=== PATIENT | female | born 1975 | race Caucasian/White ===

== ENCOUNTER 2023-07-29 17:32 | Emergency (ER) | payer OTHER ==
[2023-07-29 18:03] VITALS: O2SAT 98
[2023-07-29 18:20] LABS: BASOPHILS % (AUTO) 0.5 %; EOSINOPHILS # (AUTO) 0.2 10^3/uL (0.0-0.7); EOSINOPHILS % (AUTO) 2.6 %; HGB - HEMOGLOBIN 12.3 g/dL (12.0-16.0); LYMPHOCYTES # (AUTO) 2.5 10^3/uL (1.5-3.5); LYMPHOCYTES % (AUTO) 32.3 %; MEAN CORPUSCULAR HGB CONC 33.2 g/dL (32.0-36.0); MEAN CORPUSCULAR VOLUME 90.2 fL (81.0-99.0); MEAN PLATELET VOLUME 7.9 fL (7.9-10.8); MONOCYTES # (AUTO) 0.5 10^3/uL (0.0-1.0); MONOCYTES % (AUTO) 5.9 %; NEUTROPHILS # (AUTO) 4.6 10^3/uL (1.5-6.6); NEUTROPHILS % (AUTO) 58.4 %; PLT - PLATELET COUNT 408 10^3/uL (130-450); WHITE BLOOD COUNT 7.8 x10^3/uL (4.8-10.8)
[2023-07-29 18:21] LABS: BILIRUBIN,URINE NEGATIVE (NEGATIVE); GLUCOSE, URINE (UA) NEGATIVE (NEGATIVE); KETONES,URINE (UA) NEGATIVE (NEGATIVE); LEUKOCYTE ESTERASE, URINE NEGATIVE (NEGATIVE); NITRITE,URINE NEGATIVE (NEGATIVE); OCCULT BLOOD,URINE NEGATIVE (NEGATIVE); PROTEIN,URINE NEGATIVE (NEGATIVE); UROBILINOGEN,URINE 0.2 (NORMAL) E.U./dL (NORMAL)
[2023-07-29 18:24] LABS: CLARITY,URINE CLEAR (CLEAR); HCG UR QUAL NEGATIVE
[2023-07-29 18:33] LABS: ALBUMIN 4.4 g/dL (3.2-5.5); ALBUMIN/GLOBULIN RATIO 1.2 (1.0-2.2); BILIRUBIN,TOTAL 0.4 mg/dL (0.2-1.0); CALCIUM 9.5 mg/dL (8.5-10.3); CREATININE 0.7 mg/dL (0.6-1.3); POTASSIUM 3.9 mmol/L (3.5-4.5); TOTAL PROTEIN 8.2 g/dL (6.4-8.9)
--- NOTE | 2023-07-29 19:45 | ED Physician Documentation ---
PD HPI BACK PAIN - Stated complaint Stated Complaint: ABD PX/ - Chief complaint Chief Complaint: Back Pain - History obtained from History obtained from: Patient - Additional information Additional information: 47-year-old woman with history of fibromyalgia presents with right flank pain that is been going on for about 2 days. More recently it started to radiate to the right upper quadrant. It is not associated with eating. It is worse with movements and position changes. No fevers. No urinary complaints. No shortness of breath other than when the pain is bad she feels short of breath. No cough or hemoptysis. No pedal edema or calf pain. No recent travel. PD PAST MEDICAL HISTORY - Past Medical History Cardiovascular: None Respiratory: Asthma, COPD, Sleep apnea Endocrine/Autoimmune: None GI: GERD, Other : None Psych: Depression Musculoskeletal: Fibromyalgia Derm: None - Past Surgical History /[employer]: Hysterectomy - Present Medications Home Medications: Ambulatory Orders Medication Instructions Recorded Confirmed Albuterol [Ventolin Hfa] PRN 02/24/14 02/25/14 Dicyclomine [Bentyl] 20 mg DAILY 02/24/14 02/25/14 Gabapentin [Neurontin] 300 mg BID 02/24/14 02/25/14 Ibuprofen [Motrin] 800 mg PRN 02/24/14 02/25/14 Lansoprazole [Prevacid] 30 mg DAILY 02/24/14 02/25/14 Multivitamin [Daily Klaus] ONCE 02/24/14 02/25/14 PARoxetine HCL [Paxil] 30 mg ONCE 02/24/14 02/25/14 Oxycodone HCl/Acetaminophen PRN 02/25/14 02/25/14 [Percocet 5-325 mg Tablet] Cyclobenzaprine [Flexeril] 10 mg PO TID PRN #20 tablet 07/29/23 - Allergies Allergies/Adverse Reactions: Allergies Allergy/AdvReac Type Severity Reaction Status Date / Time Intrathecal/epidural Allergy Itching Uncoded 07/29/23 17:58 medication PD ED PE NORMAL - Vitals Vital signs reviewed: Yes - General General: Alert and oriented X 3, No acute distress - HEENT HEENT: PERRL, EOMI - Cardiac Cardiac: RRR, No murmur - Respiratory Respiratory: No respiratory distress, Clear bilaterally - Abdomen Abdomen: Other (She points to well below the ribs on the right flank as the site of pain. She is not tender there per se but does have some right upper quadrant tenderness without surgical signs.) - Extremities Extremities: No edema, No calf tenderness / cord - Neuro Neuro: Alert and oriented X 3, Normal speech Results - Vitals Vitals: Vital Signs - 24 hr 07/29/23 17:54 Temperature 35.5 C L Heart Rate 84 Respiratory 16 Rate Blood Pressure 128/86 H O2 Saturation 98 Oxygen O2 Source Room air - Labs Labs: Laboratory Tests 07/29/23 07/29/23 07/29/23 18:11 18:14 18:14 WBC 7.8 RBC 4.10 L Hgb 12.3 Hct 37.0 MCV 90.2 MCH 30.0 MCHC 33.2 RDW 13.0 Plt Count 408 MPV 7.9 Neut # (Auto) 4.6 Lymph # (Auto) 2.5 [place] # (Auto) 0.5 Eos # (Auto) 0.2 Baso # (Auto) 0.0 Absolute Nucleated RBC 0.00 Nucleated RBC % 0.0 D-Dimer Sodium 138 Potassium 3.9 Chloride 103 Carbon Dioxide 27 Anion Gap 8.0 BUN 16 Creatinine 0.7 Estimated GFR (MDRD) 90 Glucose 122 H Calcium 9.5 Total Bilirubin 0.4 AST 19 ALT 29 Alkaline Phosphatase 86 Total Protein 8.2 Albumin 4.4 Globulin 3.8 Albumin/Globulin Ratio 1.2 Lipase 40 Urine Color YELLOW Urine Clarity CLEAR Urine pH 6.0 Ur Specific [place] >=1.030 H Urine Protein NEGATIVE Urine Glucose (UA) NEGATIVE Urine Ketones NEGATIVE Urine Occult Blood NEGATIVE Urine Nitrite NEGATIVE Urine Bilirubin NEGATIVE Urine Urobilinogen 0.2 (NORMAL) Ur Leukocyte Esterase NEGATIVE Ur Microscopic Review NOT INDICATED Urine Culture Comments NOT INDICATED Urine HCG, Qual NEGATIVE 07/29/23 19:14 WBC RBC Hgb Hct MCV MCH MCHC RDW Plt Count MPV Neut # (Auto) Lymph # (Auto) [place] # (Auto) Eos # (Auto) Baso # (Auto) Absolute Nucleated RBC Nucleated RBC % D-Dimer 209.3 Sodium Potassium Chloride Carbon Dioxide Anion Gap BUN Creatinine Estimated GFR (MDRD) Glucose Calcium Total Bilirubin AST ALT Alkaline Phosphatase Total Protein Albumin Globulin Albumin/Globulin Ratio Lipase Urine Color Urine Clarity Urine pH Ur Specific [place] Urine Protein Urine Glucose (UA) Urine Ketones Urine Occult Blood Urine Nitrite Urine Bilirubin Urine Urobilinogen Ur Leukocyte Esterase Ur Microscopic Review Urine Culture Comments Urine HCG, Qual PD Medical Decision Making - ED course ED course: She presents with a little under 2 weeks of right flank pain radiating to the right abdomen, it seems too low to be chest but certainly PE is considered. D-dimer normal/negative ruling out PE/thromboembolic disease. Otherwise she does seem somewhat tender in the right upper quadrant which would be concerning for biliary disease and ultrasound was ordered. Labs including CBC, CMP, lipase, urinalysis, test all normal/negative. Her ultrasound prelim read as fatty liver, otherwise negative but a limited study. Given the significant relationship with motion, bending and twisting making it much worse and she is relatively pain-free at rest I do believe that this is muscular pain and is treated with a muscle relaxer but with close return precautions. Departure - Departure Disposition: 01 Home, Self Care Clinical Impression: Back pain Qualifiers: Back pain location: low back pain Chronicity: acute Back pain laterality: right Sciatica presence: without sciatica Qualified Code(s): M54.50 - Low back pain, unspecified Condition: Good Record reviewed to determine appropriate education?: Yes Instructions: ED Abdominal Pain Female Non-Specific Abdominal Pain Prescriptions: Cyclobenzaprine [Flexeril] 10 mg PO TID PRN #20 tablet PRN Reason: Spasms Comments: As discussed, you do have a fatty liver, which is a common problem but is generally not dangerous. Recommend weight loss if able and abstinence from alcohol. Otherwise the actual pain you came in for I suspect is muscular and I am adding a muscle relaxer. Do not drink or drive with it. Call your doctor to arrange a follow-up appointment, make the next available appointment. In the interim, return anytime if worse or if new symptoms develop.
[2023-07-29] MEDS ORDERED: CYCLOBENZAPRINE 10 MG Prepack 2 PO STA (21:08)
[2023-07-29 21:21] VITALS: BP 128/78
--- NOTE | 2023-07-29 22:19 | Ultrasound Report ---
PROCEDURE: Abdomen Limited INDICATIONS: RUQ/R flank pain TECHNIQUE: Real-time focused scanning was performed of the abdomen, with image documentation. COMPARISONS: None. FINDINGS: Liver: Increased liver echogenicity, commonly mild hepatic steatosis. Gallbladder: Unremarkable. Biliary ducts: Intrahepatic bile ducts are non-dilated. Extrahepatic bile duct caliber measures 3 m m. Normal is 6-7 mm or less in diameter, or 10 mm or less post-cholecystectomy. Pancreas: Visualized portions of the pancreas are sonographically normal. Right kidney: Right kidney measures 9.9 cm long. No hydronephrosis or nephrolithiasis. No solid mass es. No complex renal cystic lesions which require follow-up. Aorta: Visualized aorta is normal in caliber at less than 3 cm. IVC: Intrahepatic inferior vena cava is patent. Miscellaneous: No free abdominal fluid. IMPRESSION: 1. No cholelithiasis or evidence of acute cholecystitis. 2. The liver is echogenic, a nonspecific finding commonly seen in the setting of steatosis. Reviewed by: Tomy Morrow MD on 07/29/2023 10:18 PM PDT Approved by: Tomy Morrow MD on 07/29/2023 10:18 PM PDT Station ID: [id number]
== END 2023-07-29 21:29 | disposition home or self-care (01) ==
LOC: ED 17:32
DX: M54.50 Low back pain, unspecified (principal); K76.0 Fatty (change of) liver, not elsewhere classified
CPT/HCPCS: 36415; 80053; 81001; 81003; 81025; 83690; 85025; 85379; 87086; 99284